=== PATIENT | male | born 1970 | race Caucasian/White ===

== ENCOUNTER 2017-09-16 13:55 | Emergency (ER) | payer SELFPAY ==
[~2017-09-16] VITALS: Ht 180.3 cm; Wt 92.5 kg
[2017-09-16 14:28] VITALS: Ht 180.3 cm; Wt 92.5 kg
[2017-09-16 16:15] VITALS: BP 125/78
== END 2017-09-16 16:36 | disposition home or self-care (01) ==
LOC: ED 13:55
DX: S43.004A Unspecified dislocation of right shoulder joint, initial encounter (principal); W18.30XA Fall on same level, unspecified, initial encounter; Y93.89 Activity, other specified; Y99.8 Other external cause status; Y92.89 Other specified places as the place of occurrence of the external cause
CPT/HCPCS: J2704; Q0092